=== PATIENT | female | born 1980 | race African-American/Black ===

== ENCOUNTER 2017-10-30 19:27 | Emergency (ER) | payer OTHER ==
[~2017-10-30] VITALS: Ht 162.6 cm; Wt 80.7 kg
[~2017-10-30 19:27] MED LIST: SYNTHROID75 MCG PO
== END 2017-10-30 21:18 | disposition home or self-care (01) ==
LOC: ER 19:27
DX: K52.9 Noninfective gastroenteritis and colitis, unspecified (principal); E86.0 Dehydration

== ENCOUNTER 2018-06-21 09:30 | Emergency (ER) | payer OTHER ==
[~2018-06-21] VITALS: Ht 162.6 cm; Wt 79.4 kg
[2018-06-21] MEDS ORDERED: IBUPROFEN800 MG PO (15:44)
== END 2018-06-21 18:58 | disposition home or self-care (01) ==
LOC: ER 09:30
DX: R10.2 Pelvic and perineal pain (principal)

== ENCOUNTER 2022-06-09 12:27 | Emergency (ER) | payer OTHER ==
[~2022-06-09] VITALS: Ht 162.6 cm; Wt 94.3 kg
[~2022-06-09 12:27] MED LIST changes: +IBUPROFEN800 MG PO
[2022-06-09] MEDS ORDERED: HYDROCHLOROTH12.5 MG PO (13:22)
[2022-06-09] MEDS ORDERED: SYNTHROID112 MCG PO (13:22)
[2022-06-09] MEDS ORDERED: LOSARTAN POTASS25 MG PO (13:23)
[2022-06-09] MEDS ORDERED: CIPRO500 MG PO (18:21)
== END 2022-06-09 18:31 | disposition home or self-care (01) ==
LOC: ER 12:27
DX: N39.0 Urinary tract infection, site not specified (principal); Z88.8 Allergy status to other drugs, medicaments and biological substances; Z91.018 Allergy to other foods

== ENCOUNTER 2022-07-03 05:34 | Emergency (ER) | payer OTHER ==
[~2022-07-03] VITALS: Ht 162.6 cm; Wt 88.9 kg
[~2022-07-03 05:34] MED LIST changes: +CIPRO500 MG PO; +HYDROCHLOROTH12.5 MG PO; +LOSARTAN POTASS25 MG PO; +SYNTHROID112 MCG PO
== END 2022-07-03 09:11 | disposition home or self-care (01) ==
LOC: ER 05:34
DX: N93.8 Other specified abnormal uterine and vaginal bleeding (principal); R10.2 Pelvic and perineal pain; Z91.018 Allergy to other foods; R11.0 Nausea